=== PATIENT | female | born 1985 | race African-American/Black ===

== ENCOUNTER 2017-02-19 23:20 | Emergency (ER) | payer BC, SELFPAY ==
--- NOTE | 2017-02-19 23:51 | RAD ---
RIGHT FOOT THREE VIEW 02/19/17 HISTORY: Pain. COMPARISON: None. FINDINGS: There is evidence of old injury to the third metacarpal base although this has healed. Lisfranc inte rval appears to be maintained. Small plantar dorsal calcaneal spurs. IMPRESSION: No acute fracture or malalignment. POS: [facility]
[2017-02-20] MEDS ORDERED: Ibuprofen 800 MG TAB ONE (00:51)
[2017-02-20] MEDS ORDERED: Adacel (T-DAP) 0.5 ML VIAL ONE (00:51)
== END 2017-02-20 00:59 | disposition home or self-care (01) ==
LOC: ERS 23:20
DX: S93.601A Unspecified sprain of right foot, initial encounter (principal); W22.8XXA Striking against or struck by other objects, initial encounter
CPT/HCPCS: 90471; 90715

== ENCOUNTER 2017-03-30 08:55 | Emergency (ER) | payer SELFPAY ==
[2017-03-30 09:43] LABS: #Basophils 0.1 thou/uL (0.0-0.2); #Eosinphils 0.2 thou/uL (0.0-0.7); #Lymphocytes 2.6 thou/uL (1.20-3.40); #Monocytes 0.3 thou/uL (0.11-0.59); %Basophils 0.9 % (0.0-1.0); %Eosinophils 2.5 % (0.0-10.0); %Lymphocytes 42.4 % (21.0-51.0); %Monocytes 4.3 % (0.0-10.0); Hematocrit 41.2 % (36.0-47.0); Mean Platelet Volume 6.1 fL (7.4-10.4); Red Blood Cell (RBC) Count 4.64 mill/uL (4.20-5.40); White Blood Cell (WBC) Count 6.1 thou/uL (4.8-10.8)
[2017-03-30 10:04] LABS: ALT (SGPT) 23 U/L (8-55); AST (SGOT) 23 U/L (5-34); Alkaline Phosphatase 47 U/L (40-150); Anion Gap 13 mmol/L (10-20); BUN (Urea Nitrogen) 8 mg/dL (7.0-18.7); Bilirubin, Total 0.3 mg/dL (0.2-1.2); Calc. Creatinine Clearance 0 mL/min (70-130); Carbon Dioxide 24 mmol/L (22-29); Chloride 105 mmol/L (98-107); Estimated GFR-MDRD Greater than 90; Lipase 37 U/L (8-78); Protein, Total 8.7 g/dL (6.0-8.3)
[2017-03-30 10:07] LABS: Bilirubin Negative (Negative); Blood, Urine Small (Negative); Glucose, Urine (Dipstick) Negative (Negative); Ketone, Urine Negative (Negative); Nitrite Negative (Negative); Protein, Urine (Dipstick) Negative (Neg-Trace); Urobilinogen 0.2 mg/dL (0.2-1.0)
[2017-03-30 10:10] LABS: Bacteria/HPF 1+ HPF (None Seen); Hyaline Casts/LPF 0-3 HYALINE CAST LPF (0-3 Hyaline); WBC/HPF 0-3 HPF (0-3)
--- NOTE | 2017-03-30 10:33 | ULT ---
GALLBLADDER ULTRASOUND: History: Abdominal pain. FINDINGS: The gallbladder has a normal sonographic appearance. No evidence of gallstones. Common duct is normal caliber at 3-4 mm. Liver is echogenic consistent with fatty infiltration. The pancreas is partially imaged and appears u nremarkable as visualized. Pancreas is mostly obscured. Right kidney is imaged and appears unremarkable. Aorta and IVC are not imaged. IMPRESSION: 1. Evidence of hepatic steatosis. 2. Gallbladder appears unremarkable. POS: [facility]
[2017-03-30] MEDS ORDERED: Ketorolac Tromethamine 30 MG/ML VIAL ONE (11:01)
--- NOTE | 2017-03-30 11:01 | CT ---
CT ABDOMEN AND PELVIS WITHOUT CONTRAST: COMPARISON: Right-sided abdominal pain that began hurting on Tuesday. TECHNIQUE: Multiple contiguous axial images were obtained in a CT of the abdomen and pelvis without contrast. C oronal reformats were performed. FINDINGS: The liver, gallbladder, kidneys, adrenal glands, spleen, and pancreas are unremarkable, although eval uation is limited without IV contrast. No free air, free fluid, or stranding changes are seen in the abdomen or pelvis. The reproductive organs are unremarkable. The large and small bowel are unremarkable. The appendix is unremarkable. No abdominal or pelvic lymphadenopathy is seen. The osseous structures, visualized inferior thorax, and abdominal wall soft tissues are unremarkable. IMPRESSION: No evidence of acute intraabdominal/pelvic abnormality. POS: [facility]
== END 2017-03-30 11:15 | disposition home or self-care (01) ==
LOC: ERS 08:55
DX: R31.9 Hematuria, unspecified (principal)
CPT/HCPCS: 36415; 74176; 76705; 80053; 81003; 81015; 81025; 83690; 85025; 87086; 96372; J1885